=== PATIENT | male | born 1950 | race Caucasian/White ===

== ENCOUNTER → 2016-07-23 | Outpatient (CLI) | payer MEDICARE, MEDICAID ==
[~2016-07-23] MED LIST: ESOM40CA PO; GABA-827 PO; GADOBUTROL 10 MMOL/10 ML VIAL ONE; MULT-658 PO; OXYC15TA PO; OXYC20TA42 PO; QUET300T5 PO; TIZA4CAP PO; TRAZ150T68 PO
== END | disposition home or self-care (01) ==
LOC: CFH 11:51
PROVIDERS: ATTEND Registered Nurse
DX: N43.3 Hydrocele, unspecified (principal); N45.1 Epididymitis; N28.89 Other specified disorders of kidney and ureter; N28.1 Cyst of kidney, acquired; Q63.1 Lobulated, fused and horseshoe kidney; R16.0 Hepatomegaly, not elsewhere classified
CPT/HCPCS: 74183; 76870; A9585

== ENCOUNTER → 2017-02-02 | Outpatient (CLI) | payer MEDICARE, MEDICAID ==
[~2017-02-02] MED LIST changes: -GADOBUTROL 10 MMOL/10 ML VIAL ONE; +LASIX; +POTASSIUM; +TRAZ150T62 PO; -TRAZ150T68 PO
== END | disposition home or self-care (01) ==
LOC: CFH 10:11
PROVIDERS: ATTEND Internal Medicine
DX: B17.10 Acute hepatitis C without hepatic coma (principal); R16.1 Splenomegaly, not elsewhere classified
CPT/HCPCS: 76705

== ENCOUNTER → 2017-09-02 | Outpatient (CLI) | payer MEDICARE, MEDICAID | END | disposition home or self-care (01) | LOC: RAD 08:03 | PROVIDERS: ATTEND Internal Medicine | DX: K76.0 Fatty (change of) liver, not elsewhere classified (principal); B18.2 Chronic viral hepatitis C; K74.0 Hepatic fibrosis; N28.1 Cyst of kidney, acquired; R16.1 Splenomegaly, not elsewhere classified | CPT/HCPCS: 76700 ==

== ENCOUNTER 2019-10-13 19:56 | Emergency (ER) | payer MEDICARE, MEDICAID ==
[~2019-10-13] VITALS: Ht 177.8 cm; Wt 129.0 kg
[~2019-10-13 19:56] MED LIST changes: -OXYC15TA PO; +OXYC15TA3 PO
[2019-10-13 20:00] VITALS: BP 157/73
[2019-10-13] MEDS ORDERED: HYDROcodone/APAP 5/325 TABLET ONE (21:47)
[2019-10-13] MEDS ORDERED: SULFAMETH./TRIMETHOPRIM DS 800MG/160MG TABLET ONE (21:47)
[2019-10-13] MEDS ORDERED: CEPHALEXIN 500 MG CAPSULE ONE (21:47)
[2019-10-13] MEDS ORDERED: CEPHALEXIN 500 MG CAPSULE PO ONE (22:00)
[2019-10-13] MEDS ORDERED: HYDROcodone/APAP 5/325 TABLET PO ONE (22:00)
[2019-10-13] MEDS ORDERED: SULFAMETH./TRIMETHOPRIM DS 800MG/160MG TABLET PO ONE (22:00)
== END 2019-10-13 22:07 | disposition home or self-care (01) ==
LOC: ED 21:30
DX: L03.113 Cellulitis of right upper limb (principal); G89.11 Acute pain due to trauma; E11.9 Type 2 diabetes mellitus without complications; E78.00 Pure hypercholesterolemia, unspecified; Z87.891 Personal history of nicotine dependence
CPT/HCPCS: 99283

== ENCOUNTER 2019-10-26 04:59 | Emergency (ER) | payer MEDICARE, MEDICAID ==
[~2019-10-26] VITALS: Ht 177.8 cm; Wt 128.5 kg
[2019-10-26 05:01] VITALS: BP 144/76
--- NOTE | 2019-10-26 05:05 | NUR ---
68 year old male to Ed for Right hand skin infection that is not improved after taking Bactrim and Keflex. He denies fever, chills, numbness or tingling.
[2019-10-26] MEDS ORDERED: NEOSPORIN OINT. PKT 1 PACKET ONE (06:00)
--- NOTE | 2019-10-26 06:04 | NUR ---
[employer] RN: PT DC'D BY [employer] BY DR. VELIZ'S REQUEST. PT VERBALIZED UNDERSTANDING OF DC INSTRUCTIONS, USE OF BACTROBAN AND NEED FOR F/U.
== END 2019-10-26 06:06 | disposition home or self-care (01) ==
LOC: ED 05:52
DX: L03.113 Cellulitis of right upper limb (principal); E11.9 Type 2 diabetes mellitus without complications; E78.00 Pure hypercholesterolemia, unspecified; E66.9 Obesity, unspecified; Z68.41 Body mass index [BMI] 40.0-44.9, adult; Z79.899 Other long term (current) drug therapy
CPT/HCPCS: 82962; 99283